=== PATIENT | female | born 1990 | race Two or more races ===

== ENCOUNTER 2020-01-11 19:10 | Observation (INO) | payer SELFPAY ==
[2020-01-11] MEDS ORDERED: MAG HYDROX/ALUMINUM HYD/SIMETH 30 ML ORAL.SUSP PO PRN (19:30)
[2020-01-11] MEDS ORDERED: ONDANSETRON PF 4 MG/2 ML VIAL. IVP PRN (19:30)
[2020-01-11] MEDS ORDERED: IV RINGERS,LACTATED 1000ML 1,000 ML IV PRN (19:30)
[2020-01-11] MEDS ORDERED: ACETAMINOPHEN 325 MG TABLET. PO PRN (19:30)
[2020-01-11 19:34] LABS: BILIRUBIN,URINE NEGATIVE (NEG); CLARITY,URINE CLEAR; COLOR,URINE YELLOW; NITRITE,URINE NEGATIVE (NEG); PROTEIN,URINE NEGATIVE (NEG-TRACE); UROBILINOGEN,URINE 0.2 mg/dL (0.2 mg/dL)
[2020-01-11 19:41] LABS: AMPHETAMINE/METHAMPHETAMINE NEG (NEG); BARBITURATES NEG (NEG); BENZODIAZEPINES NEG (NEG); CANNABINOIDS NEG (NEG); COCAINE NEG (NEG); METHADONE NEG (NEG); OPIATES NEG (NEG); PHENCYCLIDINE NEG (NEG)
[2020-01-11 19:44] LABS: BACTERIA,URINE FEW /HPF (0-FEW); SQUAMOUS EPITHELIAL CELL,UR OCC /LPF
[2020-02-26] MEDS ORDERED: OXYC1TAB15 PO (13:46)
[2020-02-26] MEDS ORDERED: DOCU-153 PO (13:46)
[2020-02-26] MEDS ORDERED: IBUP-1027 PO (13:46)
== END 2020-01-11 21:30 | disposition home or self-care (01) ==
LOC: 3 SO LND 19:10
PROVIDERS: ADMIT Obstetrics & Gynecology; ATTEND Obstetrics & Gynecology
DX: O26.893 Other specified pregnancy related conditions, third trimester (principal); R10.11 Right upper quadrant pain; R10.2 Pelvic and perineal pain; Z3A.33 33 weeks gestation of pregnancy
CPT/HCPCS: 80307; 81001; 87086; G0378; G0379; J7120

== ENCOUNTER 2020-02-24 06:02 | Inpatient (IN) | payer MEDICAID ==
[2020-02-24] VITALS (8 sets, daily range): BP systolic 111–152; BP diastolic 55–75
[~2020-02-24] VITALS: Ht 149.9 cm; Wt 62.1 kg
[2020-02-24] MEDS ORDERED: fentaNYL PF VIAL 100 MCG/2 ML VIAL ONE (06:39)
[2020-02-24] MEDS ORDERED: ONDANSETRON PF 4 MG/2 ML VIAL. ONE (06:40)
[2020-02-24] MEDS ORDERED: OXYTOCIN 10 UNIT/ML VIAL. ONE (06:40)
[2020-02-24] MEDS ORDERED: ePHEDrine PF IN SALINE 50 MG/10 ML SYRINGE. IV ONE (06:40)
[2020-02-24] MEDS ORDERED: PHENYLEPHRINE in 0.9% NACL PF 1 MG/10 ML SYRINGE. IV ONE (06:40)
[2020-02-24] MEDS ORDERED: MORPHINE PF 10 MG/10 ML AMPUL. ONE (06:40)
[2020-02-24] MEDS ORDERED: FAMOTIDINE 20 MG/2 ML VIAL ONE (06:41)
[2020-02-24 07:27] LABS: HEMOGLOBIN 12.5 g/dL (12.0-15.5); RED BLOOD COUNT 3.97 x10^6/uL (3.50-5.40); WHITE BLOOD COUNT 5.8 x10^3/uL (4.0-11.0)
--- NOTE | 2020-02-24 07:37 | PDOC1 ---
OB - History Hx of Present Care: Good Care Ultrasounds: Normal mid trimester US Obstetrical Complications: None Medical Complications: None Past Family/Social History * Past Medical, Surgical, Family and Obstetric Histories reviewed from chart. Rubella: Immune RPR/VDRL: Negative GBS Status: Negative HBsAG: Negative OB - Chief Complaint & HPI Date of Admission: Date of Admission: Feb 24, 2020 at 06:02 Chief Complaint/History : 2 Para: 1 EGA: 39 Reason for admission: section Indication for : desires repeat Admission Nurse Assessment Rev: Yes OB - Admission Exam Physical Exam Vitals: VS - Last 72 Hours, by Label Date Time Temp Pulse Resp B/P (MAP) Pulse Ox O2 Delivery O2 Flow Rate FiO2 02/24/20 06:56 97.8 48 16 152/75 (100) 100 Room Air 97.8 HEENT: Normal Heart: Regular Rate Lungs: Clear Abdomen: Gravid, Non tender, Soft Extremities: Edema Reflexes: Normal Cervical Dilatation: 1cm Effacement: 25% Station: -3 Membranes: Intact Accelerations: Accelerations Present Decelerations: No decelerations Contractions on Admission: >10 Minutes Apart Intensity: Mild Text A: 39 wks IUP Previous c/s x 1 P: Admit repeat c/s. JONE MALONE Jr, MD Feb 24, 2020 07:36
[2020-02-24] MEDS ORDERED: CITRIC ACID/SODIUM CITRATE 30 ML SOLUTION. PO ONE (07:45)
[2020-02-24] MEDS: IV RINGERS,LACTATED 1000ML 1,000 ML IV PRN ×3 (07:46→18:20)
[2020-02-24 08:26] LABS: BILIRUBIN,URINE SMALL (NEG); CLARITY,URINE CLEAR; COLOR,URINE AMBER; NITRITE,URINE NEGATIVE (NEG); PROTEIN,URINE 30 mg/dL (NEG-TRACE)
[2020-02-24 08:43] LABS: BACTERIA,URINE FEW /HPF (0-FEW); SQUAMOUS EPITHELIAL CELL,UR MOD /LPF; WBC,URINE 20-40 /HPF (0-4)
--- NOTE | 2020-02-24 09:04 | PDOC4 ---
OB Operative Note Date: Feb 24, 2020 PRE OP DIAGNOSIS: Previoujs C- section POST OP DIAGNOSIS: Previous C- section OPERATION PERFORMED: R [facility] Surgeon Dr. Du Anesthesia: Regional (Spinal) Blood Loss 600 ml Specimen placenta and OB Findings: Position (Vertex), Sex (Female), (9/9), Weight (3305 Gram) Complications none Additional Remarks ptJONE Marshall Jr, MD Feb 24, 2020 09:04
[2020-02-24] MEDS ORDERED: KETOROLAC 30 MG/ML VIAL. IV PRN (09:15)
[2020-02-24] MEDS ORDERED: ZOLPIDEM 5 MG TABLET. PO PRN (09:15)
[2020-02-24] MEDS ORDERED: 0.9 % SODIUM CHLORIDE 10 ML DISP.SYRIN. IV PRN (09:15)
[2020-02-24] MEDS ORDERED: diphenhydrAMINE ORAL ELIXIR 12.5 MG/5 ML ML PO PRN (09:15)
[2020-02-24] MEDS ORDERED: SIMETHICONE 80 MG TAB.CHEW PO PRN (09:15)
[2020-02-24] MEDS ORDERED: ONDANSETRON PF 4 MG/2 ML VIAL. IV PRN (09:15)
[2020-02-24] MEDS ORDERED: MAG HYDROX/ALUMINUM HYD/SIMETH 30 ML ORAL.SUSP PO PRN (09:15)
[2020-02-24] MEDS ORDERED: OXYTOCIN 30 UNIT/500 ML PREMIX 500 ML IV PRN (09:15)
[2020-02-24] MEDS ORDERED: IBUPROFEN 400 MG TABLET. PO PRN (09:15)
--- NOTE | 2020-02-24 09:21 | OP ---
DATE OF SURGERY: 02/24/2020 PREOPERATIVE DIAGNOSES: 1. A 39 weeks' intrauterine . 2. Previous section. POSTOPERATIVE DIAGNOSES: 1. A 39 weeks' intrauterine . 2. Previous section. PROCEDURE: Repeat low transverse section. SURGEON: Jone Du MD ANESTHESIA: Spinal. ESTIMATED BLOOD LOSS: 600 mL. COMPLICATIONS: None. FINDINGS: Viable female infant, Apgars 9 and 9, weight 3305 grams. Three-vessel cord placenta delivered manually intact. SUMMARY: A 29-year-old 2, para 1, at 39 weeks, presented for repeat section. The patient was counseled on risks, benefits and expectations, and voiced clear understanding to proceed. DESCRIPTION OF PROCEDURE: The patient was taken to surgery suite and placed in dorsal supine position, where was prepped with ChloraPrep and draped in sterile fashion. After adequate anesthesia, Pfannenstiel skin incision was made with scalpel down to and through the fascia. Fascia was extended laterally using curved Smallwood scissors. The superior edge of the fascia was grasped with 2 Theron clamps and dissected free of the abdominal rectus muscles using blunt dissection along with Bovie cautery. The same process took place inferiorly. The abdominal rectus muscles were dissected bluntly at the midline. Peritoneum was grasped with 2 hemostats and entered sharply with Metzenbaum scissors. This incision was extended superiorly as well as inferiorly. The Randy ring retractor was placed. Bladder flap was created using Metzenbaum scissors. A low transverse hysterotomy incision was made with scalpel down to the infant. Hysterotomy incision was extended laterally and superiorly digitally. With the aid of fundal pressure, the infant's head was delivered in a smooth atraumatic manner. With additional fundal pressure, the anterior shoulder was delivered followed by posterior shoulder and rest of female infant was delivered. Infant was suctioned with bulb syringe orally and nasally. Umbilical cord was clamped twice and cut. Viable female infant was handed to waiting nursing staff. Umbilical cord blood was then obtained. Three-vessel cord placenta was delivered manually intact. The uterus was then exteriorized and cleared of clot and debris with a moist lap. Hysterotomy incision reapproximated using #1 Vicryl suture in running locked fashion. Uterus was palpated and was now firm. Fallopian tubes and ovaries appeared normal bilaterally. Posterior cul-de-sac was cleared of clot and debris with moist lap. The uterus was then returned to the abdomen. Paracolic gutters were cleared of clot and debris with a moist lap. The hysterotomy incision was reviewed and was hemostatic. The Randy ring retractor was removed. Peritoneum was reapproximated using #1 Vicryl suture in running fashion. Abdominal rectus muscles were reapproximated using #1 Vicryl suture in an interrupted fashion. Fascia was reapproximated using Stratafix in running fashion. Skin was reapproximated using 4-0 Vicryl suture in subcuticular manner. The patient tolerated the procedure well and was taken to recovery room in stable condition. Sponge and needle count correct x 3. JONE DU MD DR: LAURA/tab JOB#: [id number] / [id number]
[2020-02-24] MEDS: KETOROLAC 30 MG/ML VIAL. IV PRN ×2 (10:04→20:41)
[2020-02-25] MEDS: IV RINGERS,LACTATED 1000ML 1,000 ML IV PRN (01:40)
[2020-02-25 03:53] VITALS: BP 113/67
[2020-02-25] MEDS: KETOROLAC 30 MG/ML VIAL. IV PRN (05:27)
[2020-02-25] MEDS: oxyCODONE/APAP 5/325 1 TAB TABLET PO PRN (07:28)
[2020-02-25] MEDS ORDERED: MULTIVITAMIN with MINERAL TABLET. PO SCH (09:00)
[2020-02-25 09:15] VITALS: BP 109/46
[2020-02-25] MEDS: DOCUSATE SODIUM 100 MG CAPSULE. PO PRN (09:47)
[2020-02-25 09:51] LABS: BASO % 0 % (0-3); EOS % 0 % (0-3); HEMATOCRIT 25.4 % (36.0-47.0); HEMOGLOBIN 8.8 g/dL (12.0-15.5); LYMPH # 1.1 x10^3/uL (1.0-4.8); LYMPH % 18 % (24-48); MEAN CORPUSCULAR HEMOGLOBIN 31 pg (25-35); MEAN CORPUSCULAR HGB CONC 35 g/dL (31-37); MEAN CORPUSCULAR VOLUME 90 fL (79-100); MONO # 0.3 x10^3/uL (0.0-1.1); MONO % 5 % (0-9); NEUT # 4.6 x10^3/uL (1.8-7.7); NEUT % 77 % (31-73); PLATELET COUNT 102 x10^3/uL (140-400); RED BLOOD COUNT 2.82 x10^6/uL (3.50-5.40); RED CELL DISTRIBUTION WIDTH 13.8 % (11.5-14.5); WHITE BLOOD COUNT 5.9 x10^3/uL (4.0-11.0)
--- NOTE | 2020-02-25 15:48 | PDOC ---
OB Progress Note Date of Service 02/25/20 Time of Evaluation 4275 Notes Pt. feeling well. Pain controlled. Pt. ambulating, voiding and tolerating regular PO. Urine output improved since am. Lab Laboratory Tests Test 02/24/20 06:20 02/24/20 06:59 02/24/20 07:00 02/24/20 13:24 Coronavirus (PCR) Not detected (Not Detected) SARS-CoV-2 Antigen (Rapid) Negative (NEGATIVE) White Blood Count 5.8 x10^3/uL (4.0-11.0) Red Blood Count 3.97 x10^6/uL (3.50-5.40) Hemoglobin 12.5 g/dL (12.0-15.5) Hematocrit 36.0 % (36.0-47.0) Mean Corpuscular Volume 91 fL (79-100) Mean Corpuscular Hemoglobin 32 pg (25-35) Mean Corpuscular Hemoglobin Concent 35 g/dL (31-37) Red Cell Distribution Width 14.0 % (11.5-14.5) Platelet Count 120 x10^3/uL (140-400) Treponema pallidum Antibody Nonreactive (Nonreactive) HIV (1&2) Antibody Screen Nonreactive (Nonreactive) Rubella IgG Antibody 22.60 index (Immune >0.99) Urine Collection Type Unknown Urine Color Nicole Urine Clarity Clear Urine pH 7.0 (<5.0-8.0) Urine Specific [place] 1.020 (1.000-1.030) Urine Protein 30 mg/dL (NEG-TRACE) Urine Glucose (UA) Negative mg/dL (NEG) Urine Ketones (Stick) 15 mg/dL (NEG) Urine Blood Negative (NEG) Urine Nitrite Negative (NEG) Urine Bilirubin Small (NEG) Urine Urobilinogen Dipstick 1.0 mg/dL (0.2 mg/dL) Urine Leukocyte Esterase Large (NEG) Urine RBC 1-2 /HPF (0-2) Urine WBC 20-40 /HPF (0-4) Urine Squamous Epithelial Cells Mod /LPF Urine Bacteria Few /HPF (0-FEW) Hepatitis B Surface Antigen Nonreactive (Nonreactive) Test 02/25/20 09:00 White Blood Count 5.9 x10^3/uL (4.0-11.0) Red Blood Count 2.82 x10^6/uL (3.50-5.40) Hemoglobin 8.8 g/dL (12.0-15.5) Hematocrit 25.4 % (36.0-47.0) Mean Corpuscular Volume 90 fL (79-100) Mean Corpuscular Hemoglobin 31 pg (25-35) Mean Corpuscular Hemoglobin Concent 35 g/dL (31-37) Red Cell Distribution Width 13.8 % (11.5-14.5) Platelet Count 102 x10^3/uL (140-400) Neutrophils (%) (Auto) 77 % (31-73) Lymphocytes (%) (Auto) 18 % (24-48) Monocytes (%) (Auto) 5 % (0-9) Eosinophils (%) (Auto) 0 % (0-3) Basophils (%) (Auto) 0 % (0-3) Neutrophils # (Auto) 4.6 x10^3/uL (1.8-7.7) Lymphocytes # (Auto) 1.1 x10^3/uL (1.0-4.8) Monocytes # (Auto) 0.3 x10^3/uL (0.0-1.1) Eosinophils # (Auto) 0.0 x10^3/uL (0.0-0.7) Basophils # (Auto) 0.0 x10^3/uL (0.0-0.2) Laboratory Tests Test 02/25/20 09:00 White Blood Count 5.9 x10^3/uL (4.0-11.0) Red Blood Count 2.82 x10^6/uL (3.50-5.40) Hemoglobin 8.8 g/dL (12.0-15.5) Hematocrit 25.4 % (36.0-47.0) Mean Corpuscular Volume 90 fL (79-100) Mean Corpuscular Hemoglobin 31 pg (25-35) Mean Corpuscular Hemoglobin Concent 35 g/dL (31-37) Red Cell Distribution Width 13.8 % (11.5-14.5) Platelet Count 102 x10^3/uL (140-400) Neutrophils (%) (Auto) 77 % (31-73) Lymphocytes (%) (Auto) 18 % (24-48) Monocytes (%) (Auto) 5 % (0-9) Eosinophils (%) (Auto) 0 % (0-3) Basophils (%) (Auto) 0 % (0-3) Neutrophils # (Auto) 4.6 x10^3/uL (1.8-7.7) Lymphocytes # (Auto) 1.1 x10^3/uL (1.0-4.8) Monocytes # (Auto) 0.3 x10^3/uL (0.0-1.1) Eosinophils # (Auto) 0.0 x10^3/uL (0.0-0.7) Basophils # (Auto) 0.0 x10^3/uL (0.0-0.2) Medications Current Medications Cefazolin Sodium/ Dextrose 50 ml @ 100 mls/hr 1X ONCE IV Last administered on 02/24/20at 07:59; Start 02/24/20 at 06:30; Stop 02/24/20 at 06:59; Status DC Fentanyl Citrate (Fentanyl 2ml Vial) 100 mcg STK-MED ONCE .ROUTE ; Start 02/24/20 at 06:39; Stop 02/24/20 at 06:40; Status DC Morphine Sulfate (Morphine Preservative Free) 10 mg STK-MED ONCE .ROUTE ; Start 02/24/20 at 06:40; Stop 02/24/20 at 06:40; Status DC Phenylephrine HCl (PHENYLEPHRINE in 0.9% NACL PF) 1 mg STK-MED ONCE IV ; Start 02/24/20 at 06:40; Stop 02/24/20 at 06:40; Status DC Ephedrine Sulfate (ePHEDrine PF IN SALINE SYRINGE) 50 mg STK-MED ONCE IV ; Start 02/24/20 at 06:40; Stop 02/24/20 at 06:40; Status DC Oxytocin (Pitocin) 10 unit STK-MED ONCE .ROUTE ; Start 02/24/20 at 06:40; Stop 02/24/20 at 06:40; Status DC Ondansetron HCl (Zofran) 4 mg STK-MED ONCE .ROUTE ; Start 02/24/20 at 06:40; Stop 02/24/20 at 06:41; Status DC Famotidine (Pepcid Vial) 20 mg STK-MED ONCE .ROUTE ; Start 02/24/20 at 06:41; Stop 02/24/20 at 06:41; Status DC Ringer's Solution 1,000 ml @ 100 mls/hr Q10H PRN IV Per protocol Last administered on 02/25/20at 01:40; Start 02/24/20 at 07:45 Citric Acid/ Sodium Citrate (Bicitra) 30 ml 1X ONCE PO Last administered on 02/24/20at 07:59; Start 02/24/20 at 07:45; Stop 02/24/20 at 07:46; Status DC Ketorolac Tromethamine (Toradol 30mg Vial) 30 mg PRN Q6HRS PRN IV PAIN Last administered on 02/25/20at 05:27; Start 02/24/20 at 08:15; Stop 02/29/20 at 08:14 Sodium Chloride (Normal Saline Flush) 3 ml QSHIFT PRN IV AFTER MEDS AND BLOOD DRAWS; Start 02/24/20 at 09:15 Oxytocin/Sodium Chloride 500 ml @ 125 mls/hr CONT PRN IV EXCESSIVE POST- BLEEDING; Start 02/24/20 at 09:15; Stop 02/24/20 at 17:14; Status DC Ibuprofen (Motrin) 800 mg PRN Q8HRS PRN PO INFLAMMATION; Start 02/24/20 at 09:15 Ondansetron HCl (Zofran) 4 mg PRN Q6HRS PRN IV NAUSEA/VOMITING Last administered on 02/24/20at 13:30; Start 02/24/20 at 09:15 Docusate Sodium (Colace) 100 mg PRN BID PRN PO HARD STOOL Last administered on 02/25/20at 09:47; Start 02/24/20 at 09:15 Al Hydroxide/Mg Hydroxide (Mylanta Plus Xs) 30 ml PRN Q4HRS PRN PO HEARTBURN / GAS; Start 02/24/20 at 09:15 Simethicone (Gas-X) 80 mg PRN AFTMEALHC PRN PO GAS / BLOATING; Start 02/24/20 at 09:15 Diphenhydramine HCl (Benadryl Oral Elixir) 12.5 mg PRN Q6HRS PRN PO ITCHING; Start 02/24/20 at 09:15 Ferrous Sulfate (Feosol) 325 mg BIDWMEALS PO ; Start 02/24/20 at 17:00 Zolpidem Tartrate (Ambien) 5 mg PRN QHS PRN PO INSOMNIA, MAY REPEAT X1; Start 02/24/20 at 09:15 Oxycodone/ Acetaminophen (Percocet 5/325) 2 tab PRN Q4HRS PRN PO MODERATE PAIN, SEVERE PAIN Last administered on 02/25/20at 07:28; Start 02/24/20 at 09:15 Ketorolac Tromethamine (Toradol 30mg Vial) 30 mg PRN Q6HRS PRN IV PAIN; Start 02/24/20 at 09:15; Stop 02/29/20 at 09:14 Multivitamins (Thera M Plus) 1 tab DAILY PO Last administered on 02/25/20at 09:47; Start 02/25/20 at 09:00 Exam Abd: soft, mild tenderness, fundus firm Incision site: clean, dry and intact Assessment POD#1 s/p repeat c/s Plan of Care: Continue current Tx, Mgmt JONE MALONE Jr, MD Feb 25, 2020 15:48
[2020-02-25 16:48] VITALS: BP 128/65
[2020-02-25] MEDS: FERROUS SULFATE 325 MG TABLET. PO SCH (17:05)
[2020-02-25 20:30] VITALS: BP 120/74
[2020-02-26 03:22] VITALS: BP 118/78
[2020-02-26] MEDS: oxyCODONE/APAP 5/325 1 TAB TABLET PO PRN (03:26)
[2020-02-26] MEDS: FERROUS SULFATE 325 MG TABLET. PO SCH (13:15)
[2020-02-26] MEDS: DOCUSATE SODIUM 100 MG CAPSULE. PO PRN (13:15)
[2020-02-26 13:30] VITALS: BP 124/79
--- NOTE | 2020-02-26 13:43 | PDOC3 ---
OB DISCHARGE SUMMARY DATE OF ADMISSION: 02/24/20 DATE OF DISCHARGE: 02/26/20 REASON FOR ADMISSION: section INTRAPARTUM PROCEDURES: : Low Cerv Trans DISCHARGE DIAGNOSIS: Term Delivered DISCHARGE INFORMATION: Activity (ad amadeo), Diet (regular), Instructions (pelvic rest x 6 wks ) HOSPITAL COURSE Pelvic rest x 6 wks, no driving x 2 wks, no lifting > 20 lbs. x 6 wks JONE MALONE Jr, MD Feb 26, 2020 13:43
[2020-02-26] MEDS ORDERED: DOCU-153 PO (13:46)
[2020-02-26] MEDS ORDERED: IBUP-1027 PO (13:46)
[2020-02-26] MEDS ORDERED: OXYC1TAB15 PO (13:46)
--- NOTE | 2020-02-26 13:47 | DISCH ---
DISCHARGE INSTRUCTIONS Condition on Discharge Condition on Discharge: Stable Activity After Discharge Activity Instructions for Disc: Activity as tolerated Lifting Instructions after Dis: No heavy lifting Driving Instructions after Dis: No driving for 2 weeks Diet after Discharge Diet after Discharge: Regular Diet Texture: Regular Contacting the DRSimran after DC Call your doctor for: Concerns you may have Follow-Up Follow up with: Dr. Du in 2 wks. JONE DU Jr, MD Feb 26, 2020 13:47
--- NOTE | 2020-02-26 15:30 | NUR ---
Discharge Discharge instructions given to patient at this time per hand engraver phone (Shelly #[phone]), no questions or concerns. To follow up with DR Du in 2 weeks. Patient ambulated off unit with her and baby. All belongings with family.
== END 2020-02-26 18:05 | disposition home or self-care (01) | DRG 788 ==
LOC: 3 SO LND 06:02 → 3 NORTH 12:37
PROVIDERS: ADMIT Obstetrics & Gynecology; ATTEND Obstetrics & Gynecology
PROC: 10D00Z1 Extraction of Products of Conception, Low, Open Approach (ICD-10-PCS; principal; 2020-02-24)
DX: O34.211 Maternal care for low transverse scar from previous cesarean delivery (principal); Z20.828 Contact with and (suspected) exposure to other viral communicable diseases; Z37.0 Single live birth; Z3A.39 39 weeks gestation of pregnancy
CPT/HCPCS: 36415; 81001; 85025; 85027; 86592; 86703; 86762; 86850; 86900; 86901; 87086; 87340; 87426; J0690; J1885; J2274; J2370; J2405; J2590; J3010; J3490; J7030; J7120; G0378; U0003-CS